=== PATIENT | female | born 1970 ===

== ENCOUNTER 2018-07-06 10:14 | Outpatient (CLI) | payer OTHER | END 2018-07-06 10:17 | disposition home or self-care (01) | LOC: SONOGRAMA 10:14 | DX: E04.1 Nontoxic single thyroid nodule (principal) ==

== ENCOUNTER 2019-01-04 11:20 | Outpatient (CLI) | payer OTHER | END 2019-01-04 11:22 | disposition home or self-care (01) | LOC: SONOGRAMA 11:20 | DX: E07.89 Other specified disorders of thyroid (principal) ==